=== PATIENT | female | born 1970 | race Caucasian/White ===

== ENCOUNTER → 2019-05-14 12:30 | Outpatient (CLI) | payer OTHER, SELFPAY ==
--- NOTE | ~2019-05-14 | MM_ITS ---
EXAMINATION: MM screening [facility] BI w loni HISTORY: Screening mammogram TECHNIQUE: Craniocaudal and mediolateral oblique 3-D tomosynthesis images were obtained and synthetic 2-D images were generated. CAD analysis was submitted and interpreted. COMPARISON: 04/10/2018, 03/23/2017, 03/16/2016 BREAST PARENCHYMAL COMPOSITION: There are scattered areas of fibroglandular density. FINDINGS: There is no evidence of suspicious mass, calcification, or architectural distortion to sugg est malignancy in either breast. There has been no suspicious interval change. IMPRESSION: 1. No mammographic evidence of malignancy. 2. Recommend routine screening mammography in one year. BI-RADS Category 1: Negative Reviewed, dictated and finalized at location A. 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
== END ==
PROVIDERS: PCP Family Medicine
DX: Z12.31 Encounter for screening mammogram for malignant neoplasm of breast (principal)
CPT/HCPCS: 77063; 77067

== ENCOUNTER 2019-12-03 10:59 | Outpatient (CLI) | payer OTHER, SELFPAY ==
--- NOTE | 2019-12-03 11:02 | ECG_ITS ---
Measurements Intervals [place] Rate: 68 P: 26 LA: 171 QRS: 13 QRSD: 109 T: 1 QT: 404 QTc: 432 Interpretive Statements SINUS RHYTHM DELAYED PRECORDIAL R/S TRANSITION BORDERLINE ST-T WAVE ABNORMALITY- INFERIOR LEADS BORDERLINE ECG Electronically Signed On 12-03-2019 11:20:36 CDT by Maurilio Church D.O.
[2019-12-03 11:29] LABS: Hematocrit 40.4 % (37.0-47.0); Hemoglobin 13.3 g/dL (12.0-15.0)
[2019-12-03 11:41] LABS: Anion Gap 7 mmol/L (8-16); Blood Urea Nitrogen 17 mg/dL (7-17); Carbon Dioxide 26 mmol/L (22-30); Chloride 104 mmol/L (98-107); Estimated Glomerular Filt Rate > 60; Glucose 113 mg/dL (65-105); Potassium 3.9 mmol/L (3.4-5.0); Sodium 137 mmol/L (137-145)
== END 2019-12-03 11:00 | disposition home or self-care (01) ==
PROVIDERS: Anesthesiology; PCP Family Medicine; Visit Provider Orthopaedic Surgery
DX: D64.9 Anemia, unspecified (principal); I10 Essential (primary) hypertension; Z01.812 Encounter for preprocedural laboratory examination; R94.31 Abnormal electrocardiogram [ECG] [EKG]
CPT/HCPCS: 36415; 80048; 85014; 85018; 93005

== ENCOUNTER 2019-12-06 01:40 | Outpatient (CLI) | payer OTHER, SELFPAY ==
[2019-12-06 19:30] LABS: SARS-CoV-2 RNA PCR Negative
== END 2019-12-06 01:41 | disposition home or self-care (01) ==
LOC: ANHCOVIDDT 01:40
PROVIDERS: PCP Family Medicine; Visit Provider Orthopaedic Surgery
DX: Z01.812 Encounter for preprocedural laboratory examination (principal); Z11.59 Encounter for screening for other viral diseases
CPT/HCPCS: 87635; C9803; U0003

== ENCOUNTER 2019-12-09 01:16 | Day surgery (SDC) | payer OTHER, SELFPAY ==
[2019-12-02 13:33] VITALS: BMI 39.4
[2019-12-09] VITALS (11 sets, daily range): BP systolic 103–124; BP diastolic 69–84; PULSE 52–71; RESP 15–18; TEMP 37–37.2; O2SAT 98–100
--- NOTE | 2019-12-09 08:57 | WPDHPUPDATE1 ---
History and Physical Update Update Date/Time: 12/09/19 08:57 History and Physical has been reviewed, including an updated exam of the patient. There are NO changes in the patient's condition. Risks, benefits, and alternatives have been discussed and questions answered. Patient agrees to proceed with procedure.
--- NOTE | 2019-12-09 11:23 | WPDANESEPPF ---
Anes - Initial Pre Proc Eval Procedure: Operation Date: 12/09/19 13:15 Proposed Procedures p Right Carpal Tunnel Release - Josemanuel Brush MD Date/Time: 12/09/19 11:23 Surgeon: Josemanuel Brush MD Pre Op Diagnosis: Right Carpal Tunnel Syndrome Patient Data Age: 49 Gender: F Height: 5 ft 4 in Weight: 104.33 kg Allergies Allergy/AdvReac Type Severity Reaction Status Date / Time adhesive Allergy Unknown RASH Verified 11/28/19 10:00 oxycodone Allergy Unknown Headache Verified 11/28/19 10:00 hydrocodone AdvReac Unknown Nausea Verified 11/28/19 10:00 Home Medications Medication Instructions Recorded Confirmed Type omeprazole 40 mg capsule,delayed 40 mg PO DAILY #90 cap 02/21/19 12/02/19 Rx release cetirizine 10 mg capsule 10 mg PO DAILY 03/13/19 12/02/19 History potassium chloride 10 mEq 10 meq PO DAILY #90 cap 04/24/19 12/02/19 Rx capsule,extended release losartan 50 mg-hydrochlorothiazide 0.5 tablet PO DAILY tablet 05/22/19 12/02/19 History 12.5 mg tablet diclofenac potassium 50 mg tablet 50 mg PO BID #60 tablet 10/06/19 12/02/19 Rx metoprolol succinate 50 mg 50 mg PO DAILY #90 tablet 10/06/19 12/02/19 Rx tablet,extended release 24 hr furosemide [Lasix] 40 mg PO DAILY 12/02/19 12/02/19 History methylphenidate HCl 27 mg 27 mg PO QAM #30 tablet 12/02/19 Rx tablet,extended release 24 hr Patient hx anesthesia problems: post op nausea/vomiting Family hx anesthesia problems: none PMFSH Past Medical History Medical History Anemia Arthritis Bilateral knee pain Carpal tunnel syndrome Chronic GERD Diastolic dysfunction Edema Essential hypertension Fibromyalgia GERD (gastroesophageal reflux disease) HTN (hypertension) Hyperlipidemia Kidney disease Lateral epicondylitis Lateral epicondylitis of both elbows Nausea Numbness and tingling in right hand Obesity AGUS on CPAP Palpitations Primary osteoarthritis of both knees Screen for colon cancer Screening, lipid Sinus tachycardia Sleep apnea Vision abnormalities Surgical History Surgical History H/O section Hx of cholecystectomy Family History Family History Father Family history of premature coronary heart disease Hypertension Diabetes mellitus Family history of elevated blood lipids Family history of congestive heart failure Family history of coronary artery disease Mother Family history of malignant neoplasm of brain Family history of elevated blood lipids Family history of arthritis Family history of dementia Sibling Colon polyp Other Cerebrovascular accident Family history of lung disease Family history of malignant neoplasm of uterus Social History Social History Smoking status: Never smoker Alcohol intake: current Substance use: never Living arrangements: with family Spiritual care concerns: No Anes - Eval Final PreProcedure Day of Procedure 12/09/19 11:23 Patient weight: obese Heart: regular rate and rhythm Lungs: clear to auscultation Airway: Mallampati scale class II Neurological: alert and oriented Last oral intake: >/= 8 hours ASA classification: III Emergent: no Anesthetic plan: proceed Anesthesia type and monitoring: general LMA and standard monitoring Informed Consent: The patient's anesthetic plan and its attendant risks and benefits were discussed with the patient/family/POA. Questions were solicited and answers provided to the satisfaction of the patient/family/POA.
[2019-12-09] MEDS: CELECOXIB 200 MG CAPSULE PO (11:43)
[2019-12-09] MEDS: ACETAMINOPHEN 500 MG TABLET 1000 MG PO (11:44)
[2019-12-09] MEDS: LACTATED RINGERS 1,000 ML 30 ML IV CONT ×2 (11:47→14:56)
[2019-12-09] MEDS: SCOPOLAMINE 1.5 MG PATCH TRANSDERM (12:08)
[2019-12-09] MEDS: ceFAZolin 2 GM/D5W 50 ML 2 GM/50 ML BAG IVPB (14:02)
[2019-12-09] MEDS: KETOROLAC 15 MG/ML VIAL (*BKC) IV PUSH (14:31)
--- NOTE | 2019-12-09 14:57 | PM.OP ---
Procedure Note - Brief Procedure Note - Brief Date of procedure: 12/09/19 Pre-op diagnosis: Right Carpal Tunnel Syndrome Post-op diagnosis: same Procedure performed: R CTR Anesthesia: GLMA Surgeon: Josemanuel Brush MD Estimated blood loss (mL): 5 Complications: No immediate complications Condition: stable Disposition: PACU
--- NOTE | 2019-12-09 14:58 | PM.PROC ---
Procedure Note - Detailed Date of procedure: 12/09/19 Pre-op diagnosis: Right Carpal Tunnel Syndrome Post-op diagnosis: same Procedure performed: R CTR Description of procedure: THE RIGHT UPPER EXTREMITY WAS PREPPED AND DRAPED IN THE STERILE FASHION. THE CARPAL TUNNEL WAS MARKED FROM THE FLEXED RING FINGER. THE TORNEQUET WAS INFLATED. THE INCISION WAS MADE AT THE MID PALM DOWN THROUGH THE SUBCUTANEOUS TISSUES. THE PALMAR FASCIA WAS IDENTIFIED. AN INCISION WAS MADE THROUGH THE PALMAR FASCIA UNTIL THE CARPAL TUNNEL WAS ENTERED. A MOSQUITO HEMOSTAT WAS USED TO PROTECT THE MEDIAN NERVE WHILE THE INCISION TO THE PALMAR FASCIA WAS COMPLETE PROXIMALLY AND DISTALLY TO THE CARDINAL LINE. NEXT, THE TRANSVERSE CARPAL LIGAMENT WAS IDENTIFIED. A FREIER ELEVATOR WAS USED TO SEPARATE THE NERVE FROM THE LIGAMENT. A METZENBAUM SCISSORS WAS THEN USED TO INCISE THE TRANSVERSE CARPAL LIGAMENT UNTIL THERE WAS A COMPLETE RELEASE OF THE CARPAL TUNNEL. THE MEDIAN NERVE WAS INTACT. THE TOURNEQUET WAS DEFLATED. THE BLEEDERS WERE CAUTERIZED. THE WOUND WAS WASHED. THE SKIN WAS APPROXIMATED WITH 4-0 NYLON SUTURE. STERILE DRESSING WAS APPLIED. PATIENT WAS EXTUBATED AND SENT TO THE RECOVERY ROOM. Anesthesia: GLMA Surgeon: Josemanuel Brush MD Estimated blood loss (mL): 5 Complications: No immediate complications Condition: stable Disposition: PACU
== END 2019-12-09 17:22 | disposition home or self-care (01) ==
PROVIDERS: PCP Family Medicine; Visit Provider Orthopaedic Surgery
PROC: (CPT 64721; principal; 2019-12-09 13:15)
DX: G56.01 Carpal tunnel syndrome, right upper limb (principal); I10 Essential (primary) hypertension; K21.9 Gastro-esophageal reflux disease without esophagitis; E78.5 Hyperlipidemia, unspecified; G47.33 Obstructive sleep apnea (adult) (pediatric); E66.9 Obesity, unspecified; Z68.39 Body mass index [BMI] 39.0-39.9, adult
CPT/HCPCS: 64721; 36415; 80048; 85014; 85018; 87635; 93005; A9270; C9803; J0690; J1100; J1885; J2250; J2405; J2704; J3010; J7120; U0003

== ENCOUNTER → 2019-12-29 15:51 | Outpatient (CLI) | payer OTHER, SELFPAY ==
--- NOTE | ~2019-12-29 | XR_ITS ---
EXAMINATION:XR cervical spine min 6V DATE: 12/29/2019 16:43 INDICATION: Unspecified injury of the neck, initial encounter TECHNIQUE: AP, lateral, bilateral oblique, lateral swimmers and odontoid views of the cervical spine are provided. COMPARISON: None FINDINGS: Alignment is normal. The odontoid is intact. No fracture is identified. There is mild loss of intervertebral disc space height at C4-5 and C5-6. The vertebral body heights are normal. Small de generative osteophytes project from the anterior endplates of multiple vertebral bodies. There is mil d uncovertebral joint osteoarthritis at C3-4 and C4-5. Prevertebral soft tissues are normal. IMPRESSION: 1. Mild cervical spondylosis without acute findings. Reviewed, dictated and finalized at location A.
== END ==
PROVIDERS: PCP Family Medicine; Visit Provider Nurse Practitioner Family
DX: M47.812 Spondylosis without myelopathy or radiculopathy, cervical region (principal)
CPT/HCPCS: 72052

== ENCOUNTER → 2020-01-10 08:54 | Outpatient (CLI) | payer OTHER, SELFPAY ==
--- NOTE | ~2020-01-10 | MR_ITS ---
EXAMINATION: MR cervical spine wo con EXAM DATE: 01/10/2020 09:55 INDICATION: Left-sided neck, upper back pain. Left shoulder pain. TECHNIQUE: Multi-sequential, multiplanar MR images of the cervical spine were obtained without contra st. Axial T2, axial T2 MERGE sequence. Sagittal T1, T2, T2 fat saturation images also obtained. Th ere is no prior study for comparison. FINDINGS: The vertebral bodies are aligned in the AP dimension. There is mild disc disease from C4-7 . The spinal cord signal intensity and intrinsic morphology is normal. Cervicomedullary junction is n ormal in appearance. There are no suspicious marrow signal abnormalities. Paraspinal soft tissue is u nremarkable. Level by level evaluation: C2-C3: Disc does not extend beyond the endplate margin. Uncovertebral joint arthropathy: None. Facet joint arthropathy: Mild bilateral. Neural foraminal stenosis: Mild to moderate left. Central canal stenosis: No stenosis. C3-C4: There is a mild diffuse disc bulge asymmetric to the right Uncovertebral joint arthropathy: None. Facet joint arthropathy: Mild bilateral. Neural foraminal stenosis: No stenosis. Central canal stenosis: Mild. C4-C5: There is a mild diffuse disc bulge. Asymmetric to the right Uncovertebral joint arthropathy: Moderate right, mild left. Facet joint arthropathy: Mild bilateral. Neural foraminal stenosis: Mild to moderate right, no left. Central canal stenosis: Mild. C5-C6: Disc does not extend beyond the endplate margin. Uncovertebral joint arthropathy: None. Facet joint arthropathy: Mild bilateral. Neural foraminal stenosis: No stenosis. Central canal stenosis: No stenosis. C6-C7: There is a mild diffuse disc bulge asymmetric to the left Uncovertebral joint arthropathy: Moderate left, mild right. Facet joint arthropathy: Minimal bilateral. Neural foraminal stenosis: Moderate left. Central canal stenosis: Mild. C7-T1: Disc does not extend beyond the endplate margin. Uncovertebral joint arthropathy: Mild bilateral. Facet joint arthropathy: Mild bilateral. Neural foraminal stenosis: No stenosis. Central canal stenosis: No stenosis. IMPRESSION: 1. Left C6-7 neural foramina most narrowed on exam. 2. Overall mild to moderate cervical spondylosis. Reviewed, dictated and finalized at location B.
== END ==
PROVIDERS: PCP Family Medicine; Visit Provider Nurse Practitioner Family
DX: M54.2 Cervicalgia (principal); M47.812 Spondylosis without myelopathy or radiculopathy, cervical region
CPT/HCPCS: 72141

== ENCOUNTER 2020-08-23 20:59 | Emergency (ER) | payer OTHER, SELFPAY ==
[2020-08-23 21:01] VITALS: BP 137/81; PULSE 78; RESP 16; TEMP 37; O2SAT 100
[2020-08-23] MEDS: TETANUS,DIPHTHERIA,AC PERTUSSIS ADULT (0.5 ML) BOOSTRIX IM (22:47)
--- NOTE | 2020-08-23 22:53 | ED.WOUNDLAC ---
HPI - Wound/Laceration General Chief Complaint: Wound/Laceration Stated Complaint: finger lac Time Seen by Provider: 08/23/20 22:14 Source: patient Mode of arrival: ambulatory Limitations: no limitations History of Present Illness HPI narrative: This is a 50 year old female who presents for evaluation of left thumb laceration. She states she accidentally cut her left thumb on window scraper. She states at the time the laceration was bleeding and appeared deep. She has no difficulty moving finger. Denies numbness or tingling. She states she will need tetanus. Related Data Home Medications Medication Instructions Recorded Confirmed cetirizine 10 mg capsule 10 mg PO DAILY 03/13/19 08/20/20 Allergies Allergy/AdvReac Type Severity Reaction Status Date / Time adhesive Allergy Unknown RASH Verified 08/20/20 08:02 oxycodone Allergy Unknown Headache Verified 08/20/20 08:02 hydrocodone AdvReac Unknown Nausea Verified 08/20/20 08:02 Review of Systems Review of Systems: All systems reviewed & are unremarkable except as noted in HPI and below PMFSH Past Medical History Medical History ADD (attention deficit disorder) Anemia Arthritis Bilateral knee pain BMI 37.0-37.9, adult Carpal tunnel syndrome Chronic GERD Diastolic dysfunction Edema Essential hypertension Fibromyalgia GERD (gastroesophageal reflux disease) HTN (hypertension) Hyperlipidemia Kidney disease Lateral epicondylitis Lateral epicondylitis of both elbows Lateral epicondylitis, left elbow Nausea Numbness and tingling in right hand Obesity AGUS on CPAP Palpitations Primary osteoarthritis of both knees Screen for colon cancer Screening, lipid Sinus tachycardia Sleep apnea Vision abnormalities Surgical History Surgical History H/O section Hx of cholecystectomy Family History Family History Father Family history of premature coronary heart disease Hypertension Diabetes mellitus Family history of elevated blood lipids Family history of congestive heart failure Family history of coronary artery disease Mother Family history of elevated blood lipids Family history of arthritis Family history of dementia Sibling Colon polyp Hypertension Other Cerebrovascular accident Family history of lung disease Family history of malignant neoplasm of uterus Social History Social History (Reviewed 08/20/20 @ 08:53 by JACK Ogden Second hand tobacco smoke exposure: Yes Alcohol intake: current Substance use: never Substance use type: does not use Gender identity (if verbalized by the patient): Female Spiritual care concerns: No Exam Const: General: no acute distress and alert Orientation/consciousness: patient oriented x3 Eyes: EOM: EOMs intact bilaterally Resp: Effort & Inspection: normal respiratory effort Neuro: General: patient oriented x3, moves all extremities and CN's II-XI intact bilaterally Extrem: Other: left thumb with subcentimeter flap laceration that is well approximated, no bleeding. Psych: Mental Status: mental status grossly normal Affect: normal affect Course Vital Signs Vital signs: Vital Signs Temperature 98.6 F 08/23/20 21:01 Pulse Rate 78 08/23/20 21:01 Respiratory Rate 16 08/23/20 21:01 Blood Pressure 137/81 08/23/20 21:01 Pulse Oximetry 100 08/23/20 21:01 Temperature 98.6 F 08/23/20 21:01 Pulse Rate 78 08/23/20 21:01 Respiratory Rate 16 08/23/20 21:01 Blood Pressure 137/81 08/23/20 21:01 Pulse Oximetry 100 08/23/20 21:01 Procedures Laceration Laceration 1: Date: 08/23/20 Time: 23:01 Site: hand (left thumb) Side (If applicable): left Size (cm): 0.5 Description: flap ====== Skin Level =====
== END 2020-08-23 23:17 | disposition home or self-care (01) ==
PROVIDERS: Emergency Provider General Practice; PCP Family Medicine
DX: S61.012A Laceration without foreign body of left thumb without damage to nail, initial encounter (principal); Z23 Encounter for immunization; K21.9 Gastro-esophageal reflux disease without esophagitis; I10 Essential (primary) hypertension; M79.7 Fibromyalgia; E78.5 Hyperlipidemia, unspecified; N28.9 Disorder of kidney and ureter, unspecified; G47.33 Obstructive sleep apnea (adult) (pediatric); F98.8 Other specified behavioral and emotional disorders with onset usually occurring in childhood and adolescence; M17.0 Bilateral primary osteoarthritis of knee; E66.9 Obesity, unspecified; Z68.38 Body mass index [BMI] 38.0-38.9, adult; Z77.22 Contact with and (suspected) exposure to environmental tobacco smoke (acute) (chronic); W27.8XXA Contact with other nonpowered hand tool, initial encounter
CPT/HCPCS: 12001; 90471; 90715; 99282

== ENCOUNTER 2020-12-14 21:48 | Emergency (ER) | payer OTHER, SELFPAY ==
--- NOTE | ~2020-12-14 | XR_ITS ---
XR chest 1V portable 12/14/2020 22:59 Indication: Cough and fever Procedure: AP portable chest Comparison: 07/04/2016 Findings: Heart size normal. Patchy bilateral infiltrates of the mid and lower lung zones. No signifi cant effusion or pneumothorax. No acute osseous abnormality. Impression: 1: Patchy bilateral infiltrates, compatible with pneumonia. Reviewed, dictated and finalized at location A. Impression: 1: Patchy bilateral infiltrates, compatible with pneumonia.
[2020-12-14 22:38] VITALS: BP 111/71; PULSE 102; RESP 19; TEMP 37.6; O2SAT 99
[2020-12-14 22:59] LABS: Basophils Absolute Auto 0.1 K/mm3 (0.0-0.1); Basophils Percent Auto 0.4 % (0.2-1.2); Eosinophils Percent Auto 0.1 % (0-4.4); Hematocrit 37.3 % (37.0-47.0); Immature Granulocyte Absolute 0.15 K/mm3 (0.00-0.031); Immature Granulocyte Percent A 0.9 % (0-0.5); Lymphocytes Absolute Auto 0.83 K/mm3 (0.9-3.2); Lymphocytes Percent Auto 4.9 % (18.3-44.2); Mean Corpuscular HGB Conc 32.2 g/dl (32-36); Mean Platelet Volume 9.5 fl (7.4-10.4); Monocytes Absolute Auto 1.8 K/mm3 (0.1-0.6); Monocytes Percent Auto 10.8 % (2.6-8.5); Neutrophils Absolute Auto 14.1 K/mm3 (1.3-6.7); Neutrophils Percent Auto 82.9 % (45.5-73.1); Platelet Count Result 226 k/mm3 (150-375); Red Blood Count 4.44 M/mm3 (4.2-5.4); Red Cell Distribution Width 13.7 % (11.5-14.5)
[2020-12-14 23:08] LABS: Alanine Aminotransferase 23 U/L (4-35); Albumin Level 3.6 g/dL (3.5-5.1); Alkaline Phosphatase 116 U/L (38-126); Anion Gap 8 mmol/L (8-16); Aspartate Amino Transferase 24 U/L (14-36); Bilirubin,Total 0.6 mg/dL (0.2-1.3); Blood Urea Nitrogen 10 mg/dL (7-17); Calcium 9.3 mg/dL (8.4-10.2); Carbon Dioxide 25 mmol/L (22-30); Chloride 101 mmol/L (98-107); Estimated CRCL calculation 78 ml/min; Estimated Glomerular Filt Rate > 60; Glucose 140 mg/dL (65-110); Potassium 3.6 mmol/L (3.4-5.0); Sodium 134 mmol/L (137-145)
[2020-12-14 23:31] LABS: EDCOVIDSCREEN Negative (Negative)
--- NOTE | 2020-12-15 01:45 | ED.FEVER ---
HPI - Fever General Chief Complaint: Fever Stated Complaint: fever Time Seen by Provider: 12/15/20 01:30 Source: patient History of Present Illness HPI Narrative: Patient presents with fever shortness of breath. Patient ports she had symptoms for the past few days and is getting progressively worse so she came to the ER for evaluation. Reports headache and diffuse body aches. She reports she is attempted Tylenol at home with intermittent relief of her symptoms. Since her symptoms are not improving she came to the ER for evaluation she has no known sick contacts denies any recent antibiotics hospitalization or association with healthcare system. Related Data Home Medications Medication Instructions Recorded Confirmed cetirizine 10 mg capsule 10 mg PO DAILY 03/13/19 11/29/20 losartan 50 mg-hydrochlorothiazide 0.5 tablet PO DAILY tablet 09/02/20 11/29/20 12.5 mg tablet Allergies Allergy/AdvReac Type Severity Reaction Status Date / Time adhesive Allergy Unknown RASH Verified 12/15/20 02:00 oxycodone Allergy Unknown Headache Verified 12/15/20 02:00 hydrocodone AdvReac Unknown Nausea Verified 12/15/20 02:00 Review of Systems Review of Systems: CONSTITUTIONAL: Reports fevers chills and sweats EYES: Denies visual changes, redness, or discharge. ENT: Denies rhinorrhea, congestion, sore throat, or otalgia. CARDIOVASCULAR: Denies chest pain, palpitations, or edema. RESPIRATORY: Reports cough and shortness of breath GASTROINTESTINAL: Denies abdominal pain, nausea, vomiting, or diarrhea. GENITOURINARY: Denies dysuria or hematuria. SKIN: Denies rash or itching. MUSCULOSKELETAL: Denies back pain, joint pain, or myalgia. NEUROLOGIC: Denies headache, numbness, dizziness, or weakness. PSYCHIATRIC: Denies anxiety or depression. All systems reviewed & are unremarkable except as noted in HPI and below PMFSH Past Medical History Medical History ADD (attention deficit disorder) Anemia Arthritis Bilateral knee pain BMI 37.0-37.9, adult BMI 39.0-39.9,adult Carpal tunnel syndrome Chronic GERD Diastolic dysfunction Edema Essential hypertension Fibromyalgia GERD (gastroesophageal reflux disease) HTN (hypertension) Hyperlipidemia Kidney disease Lateral epicondylitis Lateral epicondylitis of both elbows Lateral epicondylitis, left elbow Nausea Numbness and tingling in right hand Obesity AGUS on CPAP Palpitations Primary osteoarthritis of both knees Screen for colon cancer Screening, lipid Sinus tachycardia Sleep apnea Vision abnormalities Surgical History Surgical History H/O section Hx of cholecystectomy Family History Family History Father Family history of premature coronary heart disease Hypertension Diabetes mellitus Family history of elevated blood lipids Family history of congestive heart failure Family history of coronary artery disease Mother Family history of elevated blood lipids Family history of arthritis Family history of dementia Sibling Colon polyp Hypertension Other Cerebrovascular accident Family history of lung disease Family history of malignant neoplasm of uterus Social History Social History Second hand tobacco smoke exposure: Yes Alcohol intake: current Substance use: never Substance use type: does not use Gender identity (if verbalized by the patient): Female Spiritual care concerns: No Exam Narrative: GENERAL: Well-appearing, well-nourished, and in no acute distress. HEAD: Normocephalic, atraumatic. EYES: PERRLA and EOMI. ENT: Nares clear, no rhinorrhea or epistaxis. Mucous membranes moist. NECK: Supple. No masses. No JVD CHEST: Clear to auscultation. No respiratory distress. No wheezes rales or rhonchi HEART: Re
[2020-12-15 01:58] VITALS: BP 146/73; PULSE 103; RESP 18; O2SAT 100
[2020-12-15 02:02] LABS: Lactic Acid Reflex 0.9 mmol/L (0.7-2.1)
[2020-12-15] MEDS: ACETAMINOPHEN 500 MG TABLET 1000 MG PO (02:22)
[2020-12-15] MEDS: SODIUM CHLORIDE 0.9% IV 1,000 ML 999 ML IV CONT (02:23)
[2020-12-15 03:39] VITALS: BP 103/80; PULSE 95; RESP 16; O2SAT 98
[2020-12-15 04:19] VITALS: BP 99/58; PULSE 87; RESP 18; TEMP 36.8; O2SAT 99
== END 2020-12-15 04:20 | disposition home or self-care (01) ==
PROVIDERS: Emergency Provider Emergency Medicine; PCP Family Medicine
DX: Z20.822 Contact with and (suspected) exposure to COVID-19 (principal); J18.9 Pneumonia, unspecified organism; M19.90 Unspecified osteoarthritis, unspecified site; I10 Essential (primary) hypertension; K21.9 Gastro-esophageal reflux disease without esophagitis; G47.30 Sleep apnea, unspecified
CPT/HCPCS: 36415; 71045; 80053; 83605; 85025; 87426; 96361; 96365; 99284; A9270; C9803; J0456; J7030

== ENCOUNTER 2020-12-27 09:23 | Emergency (ER) | payer OTHER, SELFPAY ==
--- NOTE | ~2020-12-27 | XR_ITS ---
EXAMINATION: XR chest 2V EXAM DATE: 12/27/2020 09:53 INDICATION: Cough, fever, chills; recent dx of pneumonia. TECHNIQUE: Frontal and lateral projections of the chest obtained and reviewed. Comparison is made to prior examination from 12/14/2020. FINDINGS: There are cholecystectomy clips. The lungs are clear. There are no pleural effusions. Th e cardiomediastinal silhouette is within normal limits. There is no pneumothorax suspected. The bon es and soft tissues are unremarkable. IMPRESSION: No acute cardiopulmonary findings. Reviewed, dictated and finalized at location B.
[2020-12-27 09:33] VITALS: BP 139/77; PULSE 84; RESP 14; TEMP 37.7; O2SAT 100
[2020-12-27 10:12] VITALS: RESP 14; O2SAT 100
[2020-12-27] MEDS: KETOROLAC 30 MG/ML VIAL (*BKC) IV PUSH (11:08)
[2020-12-27] MEDS: SODIUM CHLORIDE 0.9% IV 500 ML 999 ML IV CONT (11:08)
[2020-12-27 11:09] VITALS: TEMP 39.2
[2020-12-27 11:18] LABS: Basophils Percent Auto 0.3 % (0.2-1.2); Eosinophils Percent Auto 0.3 % (0-4.4); Hematocrit 40.1 % (37.0-47.0); Hemoglobin 12.8 g/dL (12.0-15.0); Immature Granulocyte Absolute 0.04 K/mm3 (0.00-0.031); Immature Granulocyte Percent A 0.3 % (0-0.5); Lymphocytes Percent Auto 8.4 % (18.3-44.2); Mean Corpuscular HGB Conc 31.9 g/dl (32-36); Mean Corpuscular Hemoglobin 27.5 pg (26-34); Mean Corpuscular Volume 86.1 fl (80-100); Mean Platelet Volume 9.4 fl (7.4-10.4); Monocytes Absolute Auto 0.9 K/mm3 (0.1-0.6); Monocytes Percent Auto 7.2 % (2.6-8.5); Neutrophils Absolute Auto 9.9 K/mm3 (1.3-6.7); Neutrophils Percent Auto 83.5 % (45.5-73.1); Platelet Count Result 346 k/mm3 (150-375); Red Blood Count 4.66 M/mm3 (4.2-5.4); Red Cell Distribution Width 14.3 % (11.5-14.5); White Blood Count 11.9 K/mm3 (4.5-10.0)
[2020-12-27] MEDS: ACETAMINOPHEN 500 MG TABLET 1000 MG PO (11:27)
[2020-12-27 11:46] LABS: Anion Gap 10 mmol/L (8-16); Blood Urea Nitrogen 12 mg/dL (7-17); Calcium 9.6 mg/dL (8.4-10.2); Carbon Dioxide 27 mmol/L (22-30); Chloride 99 mmol/L (98-107); Estimated CRCL calculation 97 ml/min; Estimated Glomerular Filt Rate > 60; Glucose 108 mg/dL (65-110); Potassium 4.3 mmol/L (3.4-5.0); Sodium 136 mmol/L (137-145)
[2020-12-27 13:07] VITALS: BP 111/57; PULSE 87; RESP 14; TEMP 37.3; O2SAT 99
--- NOTE | 2020-12-27 13:22 | ED.GENADULT ---
HPI - General Adult General Chief complaint: Unspecified Stated complaint: Cough/Fever/ Bodyaches Time Seen by Provider: 12/27/20 10:03 History of Present Illness HPI narrative: Patient is a 50-year-old female who presents with concerns for infection. Recently diagnosed with pneumonia. Dysuria took a Z-Fernando and then Augmentin. Last dose was 1 week ago. Reports over last 24 hours patient has developed fevers and chills and body aches. Has a dry nonproductive cough. No loss of taste or smell. She is fully vaccinated against Covid. No known sick contacts. Patient is without urinary/dental/abdominal symptoms. Related Data Home Medications Medication Instructions Recorded Confirmed cetirizine 10 mg capsule 10 mg PO DAILY 03/13/19 11/29/20 losartan 50 mg-hydrochlorothiazide 0.5 tablet PO DAILY tablet 09/02/20 11/29/20 12.5 mg tablet Allergies Allergy/AdvReac Type Severity Reaction Status Date / Time adhesive Allergy Unknown RASH Verified 12/15/20 02:00 oxycodone Allergy Unknown Headache Verified 12/15/20 02:00 hydrocodone AdvReac Unknown Nausea Verified 12/15/20 02:00 Review of Systems Review of Systems: All systems reviewed & are unremarkable except as noted in HPI and below Constitutional: Constitutional: Reports body ache(s), Reports chills and Reports fever(s) ENT: Denies nasal congestion and Denies sore throat Respiratory: Respiratory: Reports cough, Denies dyspnea and Denies wheezing Gastrointestinal: Gastrointestinal: Denies abdominal pain, Denies diarrhea, Denies nausea and Denies vomiting Genitourinary: Genitourinary: Denies nocturia, Denies dysuria, Denies flank pain and Denies urinary urgency Musculoskeletal: Musculoskeletal: Denies back pain and Denies muscle cramps PMF Past Medical History Medical History ADD (attention deficit disorder) Anemia Arthritis Bilateral knee pain BMI 37.0-37.9, adult BMI 39.0-39.9,adult Carpal tunnel syndrome Chronic GERD Diastolic dysfunction Edema Essential hypertension Fibromyalgia GERD (gastroesophageal reflux disease) HTN (hypertension) Hyperlipidemia Kidney disease Lateral epicondylitis Lateral epicondylitis of both elbows Lateral epicondylitis, left elbow Nausea Numbness and tingling in right hand Obesity AGUS on CPAP Palpitations Primary osteoarthritis of both knees Screen for colon cancer Screening, lipid Sinus tachycardia Sleep apnea Vision abnormalities Surgical History Surgical History H/O section Hx of cholecystectomy Family History Family History Father Family history of premature coronary heart disease Hypertension Diabetes mellitus Family history of elevated blood lipids Family history of congestive heart failure Family history of coronary artery disease Mother Family history of elevated blood lipids Family history of arthritis Family history of dementia Sibling Colon polyp Hypertension Other Cerebrovascular accident Family history of lung disease Family history of malignant neoplasm of uterus Social History Social History Second hand tobacco smoke exposure: Yes Alcohol intake: current Substance use: never Substance use type: does not use Gender identity (if verbalized by the patient): Female Spiritual care concerns: No Exam Narrative: GENERAL: Well-appearing, well-nourished, and in no acute distress. HEAD: Normocephalic, atraumatic. EYES: PERRL and EOMI. CHEST: Clear to auscultation. No respiratory distress. HEART: Regular rate and rhythm. Normal peripheral pulses. ABDOMEN: Soft, nontender, nondistended. EXTREMITIES: Normal range of motion. No edema. SKIN: Warm, dry, no rash. NEURO: Alert and oriented x3. PSYCH: Normal mood and affect. Course Cou
[2020-12-27 13:45] VITALS: BP 107/78; PULSE 88; RESP 16; TEMP 37.2; O2SAT 100
[2020-12-27 19:00] LABS: SARS-CoV-2 RNA PCR Negative
== END 2020-12-27 13:46 | disposition home or self-care (01) ==
PROVIDERS: Emergency Provider Emergency Medicine; PCP Family Medicine
DX: B34.9 Viral infection, unspecified (principal); Z20.822 Contact with and (suspected) exposure to COVID-19; Z86.2 Personal history of diseases of the blood and blood-forming organs and certain disorders involving the immune mechanism; K21.9 Gastro-esophageal reflux disease without esophagitis; I10 Essential (primary) hypertension; E78.5 Hyperlipidemia, unspecified; N28.9 Disorder of kidney and ureter, unspecified; E66.9 Obesity, unspecified; Z68.37 Body mass index [BMI] 37.0-37.9, adult; G47.33 Obstructive sleep apnea (adult) (pediatric); M17.0 Bilateral primary osteoarthritis of knee
CPT/HCPCS: 36415; 71046; 80048; 85025; 87804; 96361; 96374; 99284; A9270; C9803; J1885; J7040; U0003; U0005

== ENCOUNTER → 2021-12-27 11:43 | Outpatient (CLI) | payer OTHER, SELFPAY ==
--- NOTE | ~2021-12-27 | MM_ITS ---
EXAMINATION: MM screening [facility] BI w loni HISTORY: Screening mammogram TECHNIQUE: Craniocaudal and mediolateral oblique 3-D tomosynthesis images were obtained and synthetic 2-D images were generated. CAD analysis was submitted and interpreted. COMPARISON: 05/14/2019, 04/10/2018, 03/23/2017 BREAST PARENCHYMAL COMPOSITION: There are scattered areas of fibroglandular density. FINDINGS: There is no suspicious mass, calcification, or architectural distortion to suggest malignan cy in either breast. There has been no suspicious interval change. IMPRESSION: 1. No mammographic evidence of malignancy. 2. Recommend routine screening mammography in one year. BI-RADS Category 1: Negative Reviewed, dictated and finalized at location A.
== END ==
PROVIDERS: PCP Family Medicine
DX: Z12.31 Encounter for screening mammogram for malignant neoplasm of breast (principal)
CPT/HCPCS: 77063; 77067

== ENCOUNTER 2022-03-18 00:10 | Emergency (ER) | payer OTHER, SELFPAY ==
[2022-03-18 00:23] VITALS: BP 136/86; PULSE 73; RESP 18; TEMP 36.4; O2SAT 99
--- NOTE | 2022-03-18 01:27 | PC.NURSE ---
pt to desk reporting to renee brumfield rn that she felt as if the bleeding is lighting up and will come back tomorrow if she needs to . pt amb out of ed with steady gait and in no obvious distress.
== END 2022-03-18 01:27 | disposition left against medical advice (07) ==
PROVIDERS: PCP Family Medicine
DX: N93.9 Abnormal uterine and vaginal bleeding, unspecified (principal); Z79.01 Long term (current) use of anticoagulants
CPT/HCPCS: 99199

== ENCOUNTER 2022-07-05 08:25 | Outpatient (CLI) | payer OTHER, SELFPAY ==
--- NOTE | ~2022-07-05 | MR_ITS ---
MRI of the left shoulder Technique: Axial proton-density fat-sat images, coronal proton density fat-sat and T2 fat-sat images, and sagittal T1-weighted and T2 fat-sat images were acquired. Clinical History: Subacromial bursitis Findings: There is mild AC joint degenerative change. No subacromial spur. Coracoclavicular, coracoac romial, and coracohumeral ligaments are intact. There is moderate to severe supraspinatus and infraspinatus tendinosis, without partial or full-thick ness tear of the tendons. Subscapularis tendon is intact. Tendon of long head of the biceps is intact . No labral tear identified. No degenerative change or effusion of the glenohumeral joint. Inferior glenohumeral ligament is intac t. No fluid distention of the subacromial/subdeltoid bursa. There is somewhat extensive edematous gen nge of the infraspinatus muscle belly. Impression: Fairly extensive edematous change of the infraspinatus muscle belly. Findings suggest posttraumatic c hange/low-grade muscle strain. Correlate for other infectious or inflammatory myositis. Moderate to severe supraspinatus and infraspinatus tendinosis. No partial or full-thickness tear. No evidence of subacromial bursitis. Reviewed, dictated and finalized at location . Impression: Fairly extensive edematous change of the infraspinatus muscle belly. Findings s uggest posttraumatic change/low-grade muscle strain. Correlate for other infect ious or inflammatory myositis. Moderate to severe supraspinatus and infraspinatus tendinosis. No partial or fu ll-thickness tear. No evidence of subacromial bursitis.
== END 2022-07-05 08:26 | disposition home or self-care (01) ==
LOC: ANHIMG 08:28
PROVIDERS: PCP Family Medicine; Visit Provider Nurse Practitioner Family
DX: M25.512 Pain in left shoulder (principal)
CPT/HCPCS: 73221

== ENCOUNTER 2023-03-08 12:41 | Outpatient (CLI) | payer OTHER, SELFPAY ==
--- NOTE | ~2023-03-08 | MM_ITS ---
EXAMINATION: MM screening janette BI w loni HISTORY: Screening mammogram TECHNIQUE: Craniocaudal and mediolateral oblique 3-D tomosynthesis images were obtained and synthetic 2-D images were generated. CAD analysis was submitted and interpreted. COMPARISON: 12/27/2021, , 04/10/2018 BREAST PARENCHYMAL COMPOSITION: FINDINGS: There is no evidence of suspicious mass, calcification, or architectural distortion to sugg est malignancy in either breast. There has been no suspicious interval change. IMPRESSION: 1. No mammographic evidence of malignancy. 2. Recommend routine screening mammography in one year. BI-RADS Category 1: Negative Reviewed, dictated and finalized at location A. NDER DYER
== END 2023-03-08 12:42 | disposition home or self-care (01) ==
LOC: CHSIMG 12:42
PROVIDERS: PCP Family Medicine
DX: Z12.31 Encounter for screening mammogram for malignant neoplasm of breast (principal)
CPT/HCPCS: 77063; 77067

== ENCOUNTER 2024-07-23 14:19 | Outpatient (CLI) | payer OTHER, SELFPAY ==
--- NOTE | ~2024-07-23 | XR_ITS ---
Left Hand Technique: PA, oblique, and lateral views were obtained. Clinical History: Pain Findings: No acute fracture or dislocation is seen. Osseous alignment is anatomic. Joint spaces are p reserved. Soft tissues are unremarkable. Impression: Unremarkable left hand. Reviewed, dictated and finalized at location M. Impression: Unremarkable left hand.
--- NOTE | ~2024-07-23 | XR_ITS ---
Right Hand Technique: PA, oblique, and lateral views were obtained. Clinical History: Pain Findings: No acute fracture or dislocation is seen. Osseous alignment is anatomic. Joint spaces are p reserved. Soft tissues are unremarkable. Impression: Unremarkable right hand. Reviewed, dictated and finalized at location M. Impression: Unremarkable right hand.
--- OUTSIDE RECORDS SUMMARY | 2024-07-23 15:41 | XMS_ITS | Clinical Summary ---
Author Organization [facility] Address [address] [place] [address] Care Team Providers Care Bleaching Supervisor Name Role Phone Jani Shah MD Primary Care Provider [phone] Grey Le MD Unavailable [phone] Allergies Active Allergy Reactions Criticality Noted Date Comments Adhesive Rash Medium 01/27/2022 Reaction: RASH Hydrocodone Nausea And Vomiting 04/28/2020 Oxycodone-Acetaminophen Headache Low 04/28/2020 Medications omeprazole (PriLOSEC) 40 mg capsule Take 40 mg by mouth daily Active methylphenidate ER (CONCERTA) 36 mg CR tabletIndications: Attention-Deficit Hyperactivity Disorder Take 36 mg by mouth every morning Active meloxicam (MOBIC) 15 mg tablet Take 15 mg by mouth daily Active furosemide (LASIX) 40 mg tablet Take 40 mg by mouth daily Active vitamin B complex capsule Take 1 capsule by mouth daily Active cholecalciferol (VITAMIN D-3) 25 mcg (1,000 unit) tablet Take 5,000 Units by mouth daily Active potassium chloride ER 10 mEq CR tablet Take 10 mEq by mouth daily Active multivitamin capsule Take 1 capsule by mouth daily Active liraglutide, weight loss, 3 mg/0.5 mL (18 mg/3 mL) pen injector Inject 3 mg under the skin daily Active apixaban (ELIQUIS) 5 mg tabletIndications: atrial fibrillation Take 1 tablet (5 mg total) by mouth every 12 (twelve) hours 60 tablet 11 2 Active dilTIAZem (CARDIZEM) 30 mg tablet Take 1 tablet (30 mg total) by mouth 3 (three) times a day 90 tablet 11 2 Active metoprolol tartrate (LOPRESSOR) 25 mg immediate release tablet Take 1 tablet (25 mg total) by mouth 4 (four) times a day 120 tablet 11 2 Active Active Problems Problem Noted Date Diagnosed Date Atrial fibrillation with RVR 01/27/2022 Pulmonary hypertension 01/27/2022 Acute on chronic right-sided congestive heart fa ilure 01/27/2022 Hypertension Vitamin D deficiency GERD (gastroesophageal reflux disease) Medical History Medical History Date Comments A-fib (HCC) Hypertension Social History Tobacco Use Types Packs/Day Years Used Date Smoking Tobacco: Never Tobacco Cessation:Counseling Given: Not Answered Alcohol Use Standard Drinks/Week Comments Yes 0 (1 standard drink = 0.6 oz pur e alcohol) Personal Safety Answer Date Recorded Getting School Help Needed Not on file 06/06 Comments No Sex and Gender Information Value Date Recorded Sex Assigned at Not on file Legal Sex Female 12:36 PM ALLEY WORKER Gender Identity Not on file Sexual Orientation Not on file Obstetrics History Last Filed Vital Signs Vital Sign Reading Time Taken Comments Blood Pressure 124/64 01/28/2022 11:00 AM CDT Pulse 65 01/28/2022 11:00 AM CDT Temperature 36.7 C (98 F) 01/28/2022 8:10 AM CDT Respiratory Rate 18 01/28/2022 8:10 AM CDT Oxygen Saturation 97% 01/28/2022 8:10 AM CDT Inhaled Oxygen Concentration - - Weight 94.8 kg (209 lb) 01/27/2022 3:46 AM CDT Height 162.6 cm (5' 4 ) 01/27/2022 3:46 AM CDT Body Mass Index 35.87 01/27/2022 3:46 AM CDT Plan of Treatment Health Maintenance Due Date Last Done Comments Cervical Cancer Screening 1972 Colon Cancer Screening-Colonoscopy 1972 Depression Screening 1972 Hepatitis C Screening 1972 Hepatitis B Screening 1990 Regular Well Visit/Exam 18-64 1990 Pneumococcal vaccine <65 (1 of 2 - PCV) 1991 Breast Cancer Screening-Mammogram 05/12/2014 014 Zoster Vaccine (1 of 2) 2022 Covid-19 Vaccine (2023-2 5 season) 2023 03/20/2021, 08/19/2020, 07/20/2020 Influenza Vaccine (Season Ended) 2024 03/04/2021, 01/19/2020, 01/17/2019, Additional history exists DTaP/Tdap/Td Vaccine (3 - Td or Tdap) 08/23/2030 08/23/2020, 06/01/2018 Procedures Procedure Name Priority Date/Time Associated Diagnosis Comments SCREENING MAMMOGRAM Routine 05/12/2013 1 :32 PM ALLEY WORKER from Last 3 Months or Most Recently Relevant to Health Maintenance Results * Screening Mammogram (05/12/2013 1:32 PM ALLEY WORKER) Anatomical Region Laterality Modality Breast N/A Mammography 05/12/2013 1:32 PM ALLEY WORKER Narrative 05/15/2013 3:23 PM ALLEY WORKER LOIDA CLEARY M.D. FINAL REPORT ACC# Date Time Exam [id number] May 12, 2013 13:32:00 [id number] Melchor Screening Mamm Technologist(s): Mercedez Ha; ; EXAMINATION: Mammogram Technique: Bilateral Full-Field Digital Screening Mammogram was performed. Views obtained: bilateral craniocaudal and bilateral mediolateral oblique. Computer Aided Detection was performed with Encapson.3 version 9.3. Mammogram Findings: This is a baseline study. There are scattered fibroglandular densities. There is no suspicious abnormality in either breast. IMPRESSION: Annual screening mammography is recommended. OVERALL FINAL ASSESSMENT: BI-RADS CATEGORY 1: Negative. Requested By: LISET CALL M.D. Dictated By: LOIDA CLEARY M.D. on May 15 2013 3:23P This document has been electronically signed by: LOIDA CLEARY M.D. on May 15 2013 3:23P Procedure Note Provider, MD Adi - 08/06/2016 LOIDA CLEARY M.D. FINAL REPORT ACC# Date Time Exam [id number] May 12, 2013 13:32:00 [id number] Melchor Screening Mamm Technologist(s): Mercedez Ha; ; EXAMINATION: Mammogram Technique: Bilateral Full-Field Digital Screening Mammogram was performed. Views obtained: bilateral craniocaudal and bilateral mediolateral oblique. Computer Aided Detection was performed with Encapson.3 version 9.3. Mammogram Findings: This is a baseline study. There are scattered fibroglandular densities. There is no suspicious abnormality in either breast. IMPRESSION: Annual screening mammography is recommended. OVERALL FINAL ASSESSMENT: BI-RADS CATEGORY 1: Negative. Requested By: LISET CALL M.D. Dictated By: LOIDA CLEARY M.D. on May 15 2013 3:23P This document has been electronically signed by: LOIDA CLEARY M.D. on May 15 2013 3:23P Historical Provider MD [facility] MAM[facility] PROCED[facility] Saige l Result from Last 3 Months or Most Recently Relevant to Health Maintenance Insurance [address] [place] [address] [facility] CHOICE PLUS Advance Directives For more information, please contact: [phone] * Full Code (Latest Code Status on File) Date Activated Date Inactivated Comments 01/27/2022 7:58 AM 01/28/2022 5:07 PM Care Teams Bleaching Supervisor Relationship Specialty Start Date End Date Jani Shah MD PCP - General Family Medicine 01/27/22 Grey Le MD Consulting Physician Cardiology 01/28/22
--- OUTSIDE RECORDS SUMMARY | 2024-07-23 15:41 | XMS_ITS | Clinical Summary ---
Author Organization [facility] [address] [facility] Address [address] [place] [address] Care Team Providers Care Retail General Manager Name Role Phone Jani Shah MD Primary Care Provider [phone] Social History Tobacco Use Types Packs/Day Years Used Date Smoking Tobacco: Never Assessed Comments Unknown Sex and Gender Information Value Date Recorded Sex Assigned at Not on file Legal Sex Female 9:45 AM CERTIFIED CYTOTECHNOLOGIST Gender Identity Not on file Sexual Orientation Not on file Plan of Treatment Health Maintenance Due Date Last Done Comments HEPATITIS B VACCINES (1 of 3 - 19+ 3-dose series) 1991 HPV/Cotest (21-29) 1993 PAP SMEAR 1993 CERVICAL CANCER SCREENING 2002 HPV/Cotest (30-65) 2002 PAP SMEAR 2002 BREAST CANCER SCREENING 2012 COLORECTAL SCREENING 2017 Colorectal Cancer Screening 2017 FIT-DNA Q 3 years 2017 FIT/FOBT Q 1 year 2017 Flex Sig/CT Colonography Q 5 years 2017 ZOSTER VACCINE (1 of 2) 2022 INFLUENZA VACCINE (#1) 2023 0, 01/17/2019 DTAP/TDAP/TD VACCINES (2 - T d or Tdap) 06/01/2028 06/01/2018 PNEUMOCOCCAL VACCINE 0-49 YEARS Aged Out No longer eligible b ased on patient's age to complete this topic Insurance [facility] [id number] Care Teams Retail General Manager Relationship Specialty Start Date End Date Jani Shah MD [address] [place] [address] PCP - General Family Practice 02/24/20
--- OUTSIDE RECORDS SUMMARY | 2024-07-23 15:41 | XMS_ITS | Clinical Summary ---
Author Organization [facility] Address [address] [place] [address] Care Team Providers Care Jelly Maker Name Role Phone Jani Shah MD Primary Care Provider [phone] Source Comments [facility],non-owned Affiliates and Associated Physician Practices is amultiple site organization consisting of ambulatory clinics and hospital sitesin [place], [place], [place] and [place]. This disclosure is being madepursuant to the Care Everywhere program and may not contain all information available regarding this patient. Last updated 17.[facility] Allergies Active Allergy Reactions Criticality Noted Date Comments Adhesive Sensitivity Rash Medium 01/27/2022 Reaction: RASH Hydrocodone Nausea and/or Vomiting 04/28/2020 Oxycodone-Acetaminophen Headache Low 04/28/2020 Medications * Be aware that medications may not be up to date on this document. Alwaysverify current medications with the patient. furosemide (LASIX) 20 MG tablet Take 2 (two) tablets by mouth once daily 01/16/20 17 Active losartan - hydroCHLOROthiazide (HYZAAR) 50-12.5 MG tablet Take 0.5 (one-half) tablet by mouth once daily 01/11/20 17 Active fluticasone propionate (FLONASE) 50 MCG/ACT nasal spray [place] 2 (two) sprays into each nostril once daily 12/29/19 17 Active omeprazole (PRILOSEC) 40 MG capsule Take 1 (one) capsule by mouth once daily 12/13/19 17 Active loratadine (CLARITIN) 10 MG tablet Take 1 (one) tablet by mouth once daily 5 01/17/20 17 Active metoprolol succinate XL 24hr (TOPROL XL) 50 MG tablet Take 1 (one) tablet by mouth once daily 03/30/20 18 Active POTASSIUM CHLORIDE PO Take 10 mEq by mouth once daily 01/22/20 18 Active methylphenidate CR (CONCERTA) 27 MG tablet Take 1 (one) tablet by mouth every morning 12/02/19 20 Active meloxicam (MOBIC) 15 MG tablet Take 1 (one) tablet by mouth once daily 05/06/19 21 Active multivitamins (One A Day) capsule Take 1 (one) capsule by mouth once daily Active methylphenidate ER (Concerta) 36 MG tablet TAKE 1 TABLET BY MOUTH EVERY DAY IN THE MORNING 02/04/20 22 Active Saxenda 18 MG/3ML 01/20/20 22 Active Cholecalciferol 25 MCG (1000 UT) Take 5 (five) tablets by mouth once daily Active B Complex Vitamins CAPS Take 1 capsule by mouth once daily Active losartan (Cozaar) 25 MG tablet 02/08/20 23 Active Immunizations Immunization Administration Dates Next Due FLU, HISTORIC VACCINE 03/09/2016 INFLUENZA VACCINE 12/28/2016,01/18/2015 INFLUENZA VACCINE, CELL CULT URE, QUADR. (FLUCELVAX QUADRIVALENT; 6MO+) (CCIIV4) 01/17/2019 INFLUENZA VACCINE, QUADR. (F LUZONE; FLULAVAL; FLUARIX; AFLURIA QUADRIVALENT; 6MO+), 0.5 ML (IIV4) 01/19/2020,01/13/2018 TDAP (7yrs+) 08/23/2020,06/01/2018 iNFLUENZA VACCINE, RECOM-BONILLA, QUADR. (FLUBLOCK QUADRIVALENT; 18Y+) (RIV4) 03/04/2021 Social History Tobacco Use Types Packs/Day Years Used Date Smoking Tobacco: Never Passive Smoke Exposure: Yes Smokeless Tobacco: Never Tobacco Cessation:Counseling Given: Not Answered Alcohol Use Standard Drinks/Week Comments Yes 0 (1 standard drink = 0.6 oz pur e alcohol) PHQ-2 Answer Date Recorded Patient Health Questionnaire-2 Score 0 02/19/2024 Comments No Sex and Gender Information Value Date Recorded Sex Assigned at Not on file Legal Sex Female 5:46 AM FOUNTAIN OPERATOR Gender Identity Not on file Sexual Orientation Not on file Last Filed Vital Signs Vital Sign Reading Time Taken Comments Blood Pressure 119/76 02/19/2024 9:11 AM FOUNTAIN OPERATOR Pulse - - Temperature - - Respiratory Rate - - Oxygen Saturation - - Inhaled Oxygen Concentration - - Weight 97.5 kg (215 lb) 02/19/2024 9:11 AM FOUNTAIN OPERATOR Height 162.6 cm (5' 4 ) 02/19/2024 9:11 AM FOUNTAIN OPERATOR Body Mass Index 36.9 02/19/2024 9:11 AM FOUNTAIN OPERATOR Plan of Treatment Upcoming Encounters Date Type Department Care Team (Late st Contact Info) Description 02/20/2025 9:20 AM FOUNTAIN OPERATOR Office Visit [facility] - SPICE FUMIGATOR [address] [place] [address], [address] [place] [phone] Sandip Schneider MD [address] [place] [address] [place] [phone] Health Maintenance Due Date Last Done Comments COLOGUARD (AGES 45-75) - COLON CA SCREENING 1972 COLON MONITORING 1972 COLONOSCOPY - COLON CA SCREENING 1972 CT COLONOGRAPHY - COLON CA SCREENING 1972 Colorectal Cancer Screening 1972 FIT - COLON CA SCREENING 1972 FLEX SIG - COLON CA SCREENING 1972 LIPID TESTING 1972 HIV SCREENING 1987 HEPATITIS C SCREENING 04/19/1990 HEPATITIS B VACCINE (1 of 3 - 19+ 3-dose series) 1991 PNEUMOCOCCAL VACCINE 50+ (1 of 1 - PCV) 2022 ZOSTER VACCINE (1 of 2) 2022 COVID-19 VACCINE ( season) 2023 03/20/2021, 08/19/2020, 07/20/2020 SCREENING FOR DIABETES 02/19/2024 MAMMOGRAM 03/08/2024 03/08/2023, 12/09 (Done Outside Per Report), 05/14/2019, Additional history exists DEPRESSION SCREENING 04/09/2024 02/19/2024, 05/05/2022, 05/23/2021 INFLUENZA VACCINE (Season Ended) 2024 03/04/2021, 01/19/2020, 01/17/2019, Additional history exists PAP with HPV 02/18/2029 02/19/2024, 02/07, 01/30/2022, Additional history exists DTAP/TDAP/TD VACCINES (3 - Td or Tdap) 08/23/2030 08/23/2020, 06/01/2018 HIB VACCINE Aged Out No longer eligi ble based on patient's age to complete this topic HPV VACCINE Aged Out No longer eligi ble based on patient's age to complete this topic MENINGOCOCCAL (Group B) VACCINE SHARED DECISION-MAKING Aged Out No longer eligible based on patient's age to complete this topic MENINGOCOCCAL GROUPS A/C/Y/W VACCINE Aged Out No longer eligible based on patient's age to complete this topic Procedures Procedure Name Priority Date/Time Associated Diagnosis Comments PAP IG LB+HPV APTIMA Routine 02/19/2024 10:52 AM FOUNTAIN OPERATOR Well woman exam with routine gynecological exam MAMMOGRAM 03/08/2023 from Last 3 Months or Most Recently Relevant to Health Maintenance Results * PAP IG LB+HPV APTIMA (02/19/2024 10:52 AM FOUNTAIN OPERATOR) Diagnosis Comment [facility] ACCOUNT BILL Comment:NEGATIVE FOR INTRAEP ITHELIAL LESION OR MALIGNANCY. Specimen Adequacy Comment [facility] ACCOUNT BILL Comment: Satisfactory for evaluation. Endocervical and/or squamous metaplastic cells (endocervical component) are present. Clinician Provided ICD10 Comment [facility] ACCOUNT BILL Comment:Z01.419 Performed by Comment [facility] ACCOUNT BILL Comment:Criss Recio, Cyto technologist (ASCP) Comment . [facility] ACCOUNT BILL Note Comment [facility] ACCOUNT BILL Comment: The Pap smear is a screening test designed to aid in the detection of premalignant and malignant conditions of the uterine cervix. It is not a diagnostic procedure and should not be used as the sole means of detecting cervical cancer. Both false-positive and false-negative reports do occur. IGLBP CPT Code Automation Comment [facility] ACCOUNT BILL Comment: This liquid based ThinPrep(R) pap test was screened with the use of an image guided system. Human papillomavirus Aptima Negative Negative [facility] ACCOUNT BILL Comment: This nucleic acid amplification test detects fourteen high-risk HPV types (16,18,31,33,35,39,45,51,52,56,58,59,66,68) without differentiation. Pathology/Cytolog y PART OF UTERINE CERVIX / Unknown 02/19/2024 10:52 AM FOUNTAIN OPERATOR 02/19/2024 Comment:Cervix Release to pa t Narrative [facility] ACCOUNT BILL - 02/26/2024 11:13 AM FOUNTAIN OPERATOR Performed at: 01 - [facility] [id number] Seconds Inspector: Patricia Lynch MD, Phone: [phone] Performed at: 02 - [facility] [id number] Seconds Inspector: Patricia Lynch MD, Phone: [phone] Specimen Comment: [id number] Specimen Comment: No. of containers..01 ThinPrep Vial us Sandip Schneider MD LAB - PATHOLOGY/CYTOLOGY OR DERABLES Final Result Performing Organization Address City/State/[facility] Co de Phone Number [facility] ACCOUNT BILL [address] [place] [address] * MAMMOGRAM (03/08/2023) Anatomical Region Laterality Modality Other 03/08/2023 Narrative 03/08/2023 Ordered by an unspecified provider. us Scanned Document SCANNING ONLY Final Result from Last 3 Months or Most Recently Relevant to Health Maintenance Insurance [facility] Care Teams Jelly Maker Relationship Specialty Start Date End Date Jani Shah MD [address] [place] [address] PCP - General Family Medicine 02/27/17
--- OUTSIDE RECORDS SUMMARY | 2024-07-23 15:41 | XMS_ITS | Clinical Summary ---
Author Organization [facility] Address [address] [place] [address] Care Team Providers Care Waiter/Waitress Take Out Name Role Phone Jani Shah MD Primary Care Provider [phone] Allergies Active Allergy Reactions Criticality Noted Date Comments Dander Itching 04/28/2020 Hydrocodone Nausea and Vomiting 04/28/2020 Oxycodone-Acetaminophen Headache 04/28/2020 Medications cyclobenzaprine 7.5 MG Tab TAKE 1 TABLET BY MOUTH EVERY 12 HOURS NEEDED FOR MUSCLE SPASMS 01/28/2020 Active fluticasone propionate 50 MCG/ACT nasal spray 04/06/2020 Active furosemide 20 MG tablet 04/22/2020 Active losartan-hydroCH LOROthiazide 50-12.5 MG tablet 01/26/2020 Active metoprolol succinate ER 50 MG 24 hr tablet 04/18/2020 Act alex omeprazole 40 MG capsule 04/22/2020 Active potassium chloride CR 10 MEQ CR capsule 02/09/2020 Acti ve meloxicam 15 MG tablet 05/06/2020 Active loratadine 10 MG tablet Take 10 mg by mouth daily. Active methylphenidate CR 27 MG tablet Take 27 mg by mouth every morning. Active Family History Medical History Relation Comments Hypertension Brother Heart Disease Father Hyperlipidemia Father Cancer Mother Hyperlipidemia Mother Hyperlipidemia Sister Relation Status Comments Brother Father Mother Sister Social History Tobacco Use Types Packs/Day Years Used Date Smoking Tobacco: Never Smokeless Tobacco: Never Comments No Sex and Gender Information Value Date Recorded Sex Assigned at Not on file Legal Sex Female 4:25 PM CDT Gender Identity Not on file Sexual Orientation Not on file Last Filed Vital Signs Vital Sign Reading Time Taken Comments Blood Pressure 134/86 05/11/2020 10:06 AM WIND SCIENCE AND PLANNING Pulse 65 05/11/2020 10:06 AM WIND SCIENCE AND PLANNING Temperature 36.9 C (98.5 F) 05/11/2020 9:34 AM WIND SCIENCE AND PLANNING Respiratory Rate 20 05/11/2020 10:0 6 AM WIND SCIENCE AND PLANNING Oxygen Saturation 100% 05/11/2020 10: 06 AM WIND SCIENCE AND PLANNING Inhaled Oxygen Concentration - - Weight 101.9 kg (224 lb 9.6 oz) 05/11/2020 9:34 AM WIND SCIENCE AND PLANNING Height 162.6 cm (5' 4 ) 05/11/2020 9:34 AM WIND SCIENCE AND PLANNING Body Mass Index 38.55 05/11/2020 9:34 AM WIND SCIENCE AND PLANNING Plan of Treatment Health Maintenance Due Date Last Done Comments Cervical Cancer Screening Pa p Smear (Age 30 to 64) Every 3 Years 1972 Colorectal Cancer Screening Colonoscopy (10 Years) 1972 Annual Physical 1975 Hepatitis C 1990 Hepatitis B Vaccines (1 of 3 - 19+ 3-dose series) 1991 Cervical Cancer Screening Pa p with HPV Testing (Age 30 to 64) Every 5 Years 2002 Cervical Cancer Screening with HPV 2002 Mammogram Screening 2012 Zoster Vaccines (1 of 2) 2022 COVID-19 Vaccine (2023-2 5 season) 2023 DTaP, Tdap and Td Vaccines ( 2 - Td or Tdap) 06/01/2028 06/01/2018 Meningococcal B Vaccine Aged Out No l onger eligible based on patient's age to complete this topic Meningococcal Vaccine Aged Out No spencer andrea eligible based on patient's age to complete this topic Pneumococcal Vaccine: Pediat rics (0 to 5 Years) and At-Risk Patients (6 to 49 Years) Aged Out No longer eligi ble based on patient's age to complete this topic RSV Immunizations Under 20 Months Aged Out No longer eligible based on patient's age to complete this topic Insurance Care Teams Waiter/Waitress Take Out Relationship Specialty Start Date End Date Jani Shah MD [address] [place] [address] PCP - General FAMILY PRACTICE 02/05/20
--- OUTSIDE RECORDS SUMMARY | 2024-07-23 15:41 | XMS_ITS | Referral Summary ---
Author Organization [facility] Address [address] [place] [address] Care Team Providers Care Supervisor Cold Rolling Name Role Phone Jani Shah MD Primary Care Provider [phone] Grey Le MD Unavailable [phone] Allergies Active Allergy Reactions Criticality Noted Date [...] Vitamin D deficiency GERD (gastroesophageal reflux disease) Social History Tobacco Use Types Packs/Day Years [...] on file Legal Sex Female 12:36 PM NEEDLE STRAIGHTENER Gender Identity Not on file Sexual Orientation [...] 01/27/2022 3:46 AM CDT Plan of Treatment Not on file Procedures Procedure Name Priority Date/Time Associated Diagnosis Comments SCREENING MAMMOGRAM Routine 05/12/2013 1 :32 PM NEEDLE STRAIGHTENER from Last 3 Months or Most Recently Relevant to Health Maintenance Results * Screening Mammogram (05/12/2013 1:32 PM NEEDLE STRAIGHTENER) Anatomical Region Laterality Modality Breast N/A Mammography 05/12/2013 1:32 PM NEEDLE STRAIGHTENER Narrative 05/15/2013 3:23 PM NEEDLE STRAIGHTENER LOIDA CLEARY M.D. FINAL REPORT ACC# Date Time Exam [id number] May 12, 2013 13:32:00 BMV [id number] [place] Screening Mamm Technologist(s): Mercedez Ha; ; EXAMINATION: Mammogram Technique: Bilateral Full-Field Digital Screening Mammogram was performed. Views obtained: bilateral craniocaudal and bilateral mediolateral oblique. Computer Aided Detection was performed with Mozaico 1.3 version 9.3. Mammogram Findings: This is a [...] M.D. FINAL REPORT ACC# Date Time Exam [id number] May 12, 2013 13:32:00 BMV [id number] [place] Screening Mamm Technologist(s): Mecredez Ha; ; EXAMINATION: Mammogram Technique: Bilateral Full-Field Digital Screening Mammogram was performed. Views obtained: bilateral craniocaudal and bilateral mediolateral oblique. Computer Aided Detection was performed with Mozaico 1.3 version 9.3. Mammogram Findings: This is a baseline study. There are scattered fibroglandular densities. There is no suspicious abnormality in either breast. IMPRESSION: Annual screening mammography is recommended. OVERALL FINAL ASSESSMENT: BI-RADS CATEGORY 1: Negative. Requested By: LISET CALL M.D. Dictated By: LOIAD CLEARY M.D. on May 15 2013 3:23P This document has been electronically signed by: LOIDA CLEARY M.D. on May 15 2013 3:23P us Historical Provider MD FRITZ MAMMO PROCEDURES Saige l Result from Last 3 Months or Most Recently Relevant to Health Maintenance Insurance [address] [facility]ICE [facility] Address: [place] [address] [address] [employer]/PPO Address: [place] [address] Advance Directives For more information, please contact: [phone] * Full Code (Latest Code Status on File) Date Activated Date Inactivated Comments 01/27/2022 7:58 AM 01/28/2022 5:07 PM Care Teams Supervisor Cold Rolling Relationship Specialty Start Date End Date Jani Shah MD PCP - General Family Medicine 01/27/22 Grey Le MD Consulting Physician Cardiology 01/28/22
== END 2024-07-23 14:20 | disposition home or self-care (01) ==
PROVIDERS: PCP Family Medicine; Visit Provider Nurse Practitioner Family
DX: M79.642 Pain in left hand (principal); M79.641 Pain in right hand
CPT/HCPCS: 73130

== ENCOUNTER 2025-03-19 01:27 | Day surgery (SDC) | payer OTHER, SELFPAY ==
[2025-03-04 12:03] VITALS: BMI 36.3
--- OUTSIDE RECORDS SUMMARY | 2025-03-19 01:29 | XMS_ITS | Clinical Summary ---
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 Gender Identity Not on file Sexual Orientation [...] 3:46 AM CDT Height 162.6 cm (5' 4) 01/27/2022 3:46 AM CDT Body Mass Index 35.87 01/27/2022 3:46 AM CDT Plan of Treatment Not on file Insurance [facility]US [facility] CHO[facility] PL[facility] Advance Directives For more information, please contact: [phone] * Full Code (Latest Code Status on File) Date Activated Date Inactivated Comments 01/27/2022 7:58 AM 01/28/2022 5:07 PM Care Teams Oceanographer Assistant Relationship Specialty Start Date End Date Jani Shah MD PCP - General Family Medicine 01/27/22 Grey Le MD Consulting Physician Cardiology 01/28/22
--- OUTSIDE RECORDS SUMMARY | 2025-03-19 01:29 | XMS_ITS | Clinical Summary ---
Author Organization [email or web address] Address [address] [place] [address] Care Team Providers Care Hospice Rn Name Role Phone Jani Shah MD Primary Care Provider [phone] Source Comments [facility],non-owned Affiliates and Associated Physician Practices is amultiple site organization consisting of ambulatory clinics and hospital sitesin [place], [place], [place] and [place]. This disclosure is being madepursuant to the Care Everywhere program and may not contain all information available regarding this patient. Last updated [email or web address].[email or web address] Allergies Active Allergy Reactions Criticality Noted Date [...] fluticasone propionate (FLONASE) 50 MCG/ACT nasal spray Siloam 2 (two) sprays into each nostril once [...] (Cozaar) 25 MG tablet 02/08/20 23 Active Encounters Date Type Department Care Team Description 02/20/2025 9:20 AM HEALTHCARE ECONOMICS MANAGER Office Visit [facility] [place] [facility] [place] [address] [place] [address], [address] [place] [phone] Sandip Schneider MD Well woman exam with routine gynecological exam (Primary Dx) 02/20/2025 Travel from Last 3 Months Immunizations Immunization Administration Dates Next Due FLU, [...] Date Recorded Patient Health Questionnaire-2 Score 0 02/20/2025 Comments No Sex and Gender Information Value Date Recorded Sex Assigned at Not on file Legal Sex Female 5:46 AM HEALTHCARE ECONOMICS MANAGER Gender Identity Not on file Sexual Orientation Not on file Last Filed Vital Signs Vital Sign Reading Time Taken Comments Blood Pressure 142/80 02/20/2025 9:33 AM HEALTHCARE ECONOMICS MANAGER Pulse - - Temperature - - Respiratory Rate - - Oxygen Saturation - - Inhaled Oxygen Concentration - - Weight 96.2 kg (212 lb) 02/20/2025 9:33 AM HEALTHCARE ECONOMICS MANAGER Height 162.6 cm (5' 4) 02/20/2025 9:33 AM HEALTHCARE ECONOMICS MANAGER Body Mass Index 36.39 02/20/2025 9:33 AM HEALTHCARE ECONOMICS MANAGER Plan of Treatment Upcoming Encounters Date Type Department Care Team (Late st Contact Info) Description 02/25/2026 9:20 AM HEALTHCARE ECONOMICS MANAGER Office Visit [facility] - [place] [facility] [place] [address] [place] [address], [address] [place] [phone] Sandip Schneider MD [address] [place] [address] [place] [phone] Health Maintenance Due Date Last Done [...] 2022 ZOSTER VACCINE (1 of 2) 2022 MAMMOGRAM 03/08/2024 03/08/2023, 12/09 (Done Outside Per Report), 05/14/2019, Additional history exists COVID-19 VACCINE ( season) 2024 02/24/2022, 03/20/2021, 08/19/2020, Additional history exists INFLUENZA VACCINE (#1) 2024 , 02/24/2022, 03/04/2021, Additional history exists SCREENING FOR DIABETES 02/20/2025 PAP SMEAR 02/21/2028 02/20/2025, 02/07, 02/16/2023, Additional history exists Cervical Cancer Screening 02/20/2030 PAP with HPV 02/20/2030 02/20/2025, 02/07, 02/16/2023, Additional history exists DTAP/TDAP/TD VACCINES (3 - Td or Tdap) 08/23/2030 08/23/2020, 06/01/2018 DEPRESSION SCREENING Completed 02/20/2025, 02/19/2024, 05/05/2022, Additional history exists HIB VACCINE Aged Out No longer eligi [...] Diagnosis Comments PAP IG LB+HPV APTIMA Routine 02/20/2025 2:04 PM HEALTHCARE ECONOMICS MANAGER Well woman exam with routine gynecological exam MAMMOGRAM 03/08/2023 from Last 3 Months or Most Recently Relevant to Health Maintenance Results * PAP IG LB+HPV APTIMA (02/20/2025 2:04 PM HEALTHCARE ECONOMICS MANAGER) Diagnosis Comment [facility] ACCOUNT BILL Comment:NEGATIVE FOR INTRAEP ITHELIAL LESION OR MALIGNANCY. Specimen Adequacy Comment [facility] ACCOUNT BILL Comment: Satisfactory for evaluation. Endocervical and/or squamous metaplastic cells (endocervical component) are present. Clinician Provided ICD10 Comment [facility] ACCOUNT BILL Comment:[id number] Performed by Comment [facility] ACCOUNT BILL Comment:Melyssa Gonzalez Cytol ogsaravanan (ASCP) Comment . [facility] ACCOUNT BILL Note [...] This liquid based ThinPrep(R) pap test was interpreted using the [employer]. B[employer](R) Genius(TM) Cervical Algorithm whole slide imaging system. Human papillomavirus Aptima Negative Negative [facility] ACCOUNT BILL Comment: This nucleic acid amplification test detects fourteen high-risk HPV types (16,18,31,33,35,39,45,51,52,56,58,59,66,68) without differentiation. Pathology/Cytolog y PART OF UTERINE CERVIX / Unknown 02/20/2025 2:04 PM HEALTHCARE ECONOMICS MANAGER 02/20/2025 Comment:Cervix Release to [facility] Narrative [facility] ACCOUNT BILL - 02/24/2025 3:10 PM HEALTHCARE ECONOMICS MANAGER Performed at: 01 - [facility] [id number] Associate Professor Of Archaeology: Patricia Lynch MD, Phone: [phone] Performed at: 02 - [facility] [id number] Associate Professor Of Archaeology: Patricia Lynch MD, Phone: [phone] Specimen Comment: [id number] Specimen Comment: No. of containers..01 ThinPrep Vial Sandip Schneider MD LAB - PATHOLOGY/CYTOLOGY OR DERABLES Final Result [facility] ACCOUNT BILL [id number] [place] [address] * MAMMOGRAM (03/08/2023) Anatomical Region Laterality Modality Other 03/08/2023 Narrative 03/08/2023 Ordered by an unspecified provider. us Scanned Document SCANNING ONLY Final Result from Last 3 Months or Most Recently Relevant to Health Maintenance Insurance [facility] Care Teams Hospice Rn Relationship Specialty Start Date End Date Jani Shah MD [address] [place] [address] PCP - General Family Medicine 02/27/17
--- OUTSIDE RECORDS SUMMARY | 2025-03-19 01:29 | XMS_ITS | Clinical Summary ---
Author Organization [facility] Address [address] [place] [address] Care Team Providers Care Sap Portal Architect Name Role Phone Jani Shah MD Primary Care Provider [phone] Allergies Active Allergy Reactions Criticality Noted Date [...] Comments Blood Pressure 134/86 05/11/2020 10:06 AM HEALTHCARE NETWORK PRICING CONSULTANT Pulse 65 05/11/2020 10:06 AM HEALTHCARE NETWORK PRICING CONSULTANT Temperature 36.9 C (98.5 F) 05/11/2020 9:34 AM HEALTHCARE NETWORK PRICING CONSULTANT Respiratory Rate 20 05/11/2020 10:0 6 AM HEALTHCARE NETWORK PRICING CONSULTANT Oxygen Saturation 100% 05/11/2020 10: 06 AM HEALTHCARE NETWORK PRICING CONSULTANT Inhaled Oxygen Concentration - - Weight 101.9 kg (224 lb 9.6 oz) 05/11/2020 9:34 AM HEALTHCARE NETWORK PRICING CONSULTANT Height 162.6 cm (5' 4) 05/11/2020 9:34 AM HEALTHCARE NETWORK PRICING CONSULTANT Body Mass Index 38.55 05/11/2020 9:34 AM HEALTHCARE NETWORK PRICING CONSULTANT Plan of Treatment Health Maintenance Due Date [...] Every 5 Years 2002 Cervical Cancer Screening wi HPV 2002 Mammogram Screening 2012 Pneumococcal Vaccine: 50+ Years (1 of 1 - PCV) 2022 Zoster Vaccines (1 of 2) 2022 COVID-19 Vaccine (1 - 2024-2 6 season) 2024 Influenza Adult (#1) 2025 01/19/2020, 01/17/2019 DTaP, Tdap and Td Vaccines ( 2 - Td or Tdap) 06/01/2028 06/01/2018 Hepatitis A Vaccines Aged Out No long er eligible based on patient's age to complete this topic Meningococcal B Vaccine Aged Out No l onger eligible based on patient's age to complete this topic Meningococcal Vaccine Aged Out No spencer andrea eligible based on patient's age to complete this topic RSV Immunizations Under 20 Months Aged Out No longer eligible b ased on patient's age to complete this topic Insurance Care Teams Sap Portal Architect Relationship Specialty Start Date End Date Jani Shah MD [address] [place] [id number] PCP - General FAMILY PRACTICE 02/05/20
--- OUTSIDE RECORDS SUMMARY | 2025-03-19 01:29 | XMS_ITS | Clinical Summary ---
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 Gender Identity Not on file Sexual Orientation Not on file Plan of Treatment Health Maintenance Due Date Last Done Comments HEPATITIS B VACCINES (1 of 3 - 19+ 3-dose series) 1991 HPV/Cotest (21-29) 1993 CERVICAL CANCER SCREENING 2002 HPV/Cotest (30-65) 2002 PAP SMEAR 2002 BREAST CANCER SCREENING 2012 COLORECTAL SCREENING 2017 Colorectal Cancer Screening 2017 FIT-DNA Q 3 years 2017 FIT/FOBT Q 1 year 2017 Flex Sig/CT Colonography Q 5 years 2017 ZOSTER VACCINE (1 of 2) 2022 INFLUENZA VACCINE (#1) 2024 01/19/2020, 2018 DTAP/TDAP/TD VACCINES (2 - Td or Tdap) 06/01/2028 Insurance [facility] OPTIONS PPO [id number] Member Subscriber Plan / Payer (Ef fective 2020-Present) Name:Josette Elizondo Relation to Subscriber:Self Name:Josette Elizondo Payer ID:[id number] (NAIC) Type:PPO Address: [facility] [id number] [place] [id number] Care Teams Account Support Associate Relationship Specialty Start Date End Date Jani Shah MD [address] [place] [address] PCP - General Family Practice 02/24/20
[2025-03-19 12:42] VITALS: BP 121/75; PULSE 66; RESP 18; TEMP 36.3; O2SAT 100
[2025-03-19] MEDS: LACTATED RINGERS 1,000 ML 150 ML IV CONT (12:52)
[2025-03-19 13:01] LABS: BEDSIDEPREGUCG Negative (Negative)
--- NOTE | 2025-03-19 13:07 | P.HP_ITS ---
History of Present Illness History of Present Illness Consent: Risks, benefits, and alternatives have been discussed and questions answered. Patient agrees to proceed with procedure. Chief complaint: GERD Narrative: Josette Elizondo is a 54 year old female with gerd on omeprazole Review of Systems Review of Systems: All systems reviewed & are unremarkable except as noted in HPI and below PMFSH Past Medical History Medical History Encounter for surgical aftercare following surgery on the skin and subcutaneous tissue Dizziness Neck pain Person under investigation for COVID-19 Sinusitis BMI 40.0-44.9, adult Constipation Lipoma of back Mass on back Subacromial bursitis Left shoulder pain Cyst of ovary Uterine polyp Reduced libido Digital mucous cyst of toe of right foot DJD of AC (acromioclavicular) joint Rotator cuff tendinitis Right shoulder pain Left knee DJD Right knee DJD Pneumonia Lateral epicondylitis, left elbow ADD (attention deficit disorder) Carpal tunnel syndrome Anemia Sleep apnea GERD (gastroesophageal reflux disease) Vision abnormalities Numbness and tingling in right hand Lateral epicondylitis Obesity Lateral epicondylitis of both elbows Edema Diastolic dysfunction Essential hypertension Fibromyalgia Hyperlipidemia AGUS on CPAP Primary osteoarthritis of both knees Sinus tachycardia Screen for colon cancer Screening, lipid Bilateral knee pain Arthritis HTN (hypertension) Palpitations Kidney disease Chronic GERD Nausea Surgical History Surgical History History of foot surgery History of carpal tunnel surgery History of wisdom tooth extraction H/O section x3 Hx of cholecystectomy Family History Family History Mother Family history of elevated blood lipids Family history of arthritis Family history of dementia Sibling Colon polyp Hypertension Father Heart disease Hyperlipidemia Malignant neoplasm of prostate Other Cerebrovascular accident Family history of lung disease Family history of malignant neoplasm of uterus Social History Social History Smoking status: Never smoker Second hand tobacco smoke exposure: Yes Alcohol intake: current Substance use: never Substance use type: does not use Other substance usage details: cbd oil Lack of Transportation: No Lack of Food: Never True Current Housing: I Have Housing Concerned About Future Housing: No Difficulty Paying Gas/Electric Bills: No Difficulty Paying for Meds: No Currently Unemployed: No Education: Trade/Vocational Certificate Difficulty w/ Childcare or Family Care: No Living arrangements: with family Occupation/Education: unemployed 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 Gender identity (if verbalized by the patient): Female Spiritual care concerns: No Meds Home Medications and Allergies Home Medications ?Medication ?Instructions ?Recorded ?Confirmed ?Type cetirizine 10 mg capsule (Zyrtec) 10 mg PO DAILY 03/1303/04/25 History tramadol 50 mg tablet 50 mg PO Q8H PRN pain #30 ta bs 12/17/20 03/04/25 Rx ferrous sulfate 325 mg (65 mg 325 mg PO DAILY 06/10/21 03/04/25 History iron) tablet (Feosol) vitamin B complex (B 1 tablet PO DAILY 01/05/22 1 05/04/24 History Complex-Vitamin B12 tablet) ascorbate calcium (vitamin C) 500 500 mg PO DAILY 05/1003/04/25 History mg tablet calcium 600 mg (as 1 cap PO .QD 05/22/22 History carbonate)-vitamin D3 5 mcg (200 unit) capsule (Calcium 600 + D(3)) albuterol sulfate 90 mcg/actuation 1 inh inhalation Q4 H PRN shortness 11/02/22 03/04/25 Rx aerosol inhaler (ProAir HFA) of breath or wheezing #6. 7 grams semaglutide (weight loss) 1 mg/0.5 1 mg (0.5 mL) subcu t Q7D #2 mL 03/31/24 03/19/25 Rx mL subcutaneous pen injector (Harriett) potassium chloride 10 mEq See Rx Instructions .Route 0 04/21/24 03/04/25 Rx capsule,extended release .COMPLEX #90 caps meloxicam 15 mg tablet See Rx Instructions .Route 0 05/05/24 03/19/25 Rx .COMPLEX #90 tabs losartan 25 mg tablet See Rx Instructions .Route 0 07/28/24 03/04/25 Rx .COMPLEX #90 tabs furosemide 20 mg tablet See Rx Instructions .Route 0 10/04/24 03/04/25 Rx .COMPLEX #90 tabs methylphenidate HCl 36 mg 36 mg PO QAM #30 tabs 03/04/25 Rx tablet,extended release 24 hr (Concerta) cholecalciferol (vitamin D3) 100 100 mcg PO DAILY 08/3103/04/25 History mcg (4,000 unit) tablet methylphenidate HCl 27 mg 27 mg PO QAM #30 tabs 03/04/25 Rx tablet,extended release 24 hr (Concerta) lansoprazole 30 mg capsule,delayed 30 mg PO DAILY #30 caps 02/27/25 03/04/25 Rx release metoprolol succinate 50 mg See Rx Instructions .Route 03/03/25 03/19/25 Rx tablet,extended release 24 hr .COMPLEX #90 tabs diindolylmethane 50 mg-herbal 1 cap PO DAILY 03/04/25 03/04/25 History drugs 50 mg capsule cyclobenzaprine 10 mg tablet 10 mg PO TID PRN muscle s pasm #60 03/07/25 Rx tabs Allergies Allergy/AdvReac Type Severity Reaction Status Date / Time adhesive Allergy Unknown RASH Verified 03/19/25 12:40 oxycodone Allergy Unknown Headache Verified 03/19/25 12:40 hydrocodone AdvReac Unknown Nausea Verified 03/19/25 12:40 Vital Signs Vital Signs - 24 hr 03/19/25 12:42 Temperature 97.3 F L Pulse Rate 66 Respiratory Rate 18 Blood Pressure 121/75 Pulse Oximetry 100 Oxygen Delivery Room Air Exam Const: General: comfortable and no acute distress HENMT: Face/Nose/Sinus: Normal nares present Eyes: General: appearance normal, both eyes and all related structures Neck: Neck: no JVD Resp: Auscultation: clear to auscultation bilaterally Cardio: Rate: regular rate Rhythm: regular rhythm GI: Inspection: non-distended GI Palp: Yes Soft to palpation Skin: General skin exam: normal color Extrem: General: normal to inspection Psych: Mental Status: mental status grossly normal Assessment and Plan Assessment and plan (1) GERD (gastroesophageal reflux disease): Code(s): K21.9 - Gastro-esophageal reflux disease without esophagitis Status: Acute Assessment and Plan: egd with bx
--- NOTE | 2025-03-19 13:07 | WPDANESEPPF ---
Anes - Initial Pre Proc Eval Procedure: Operation Date: 03/19/25 13:45 Proposed Procedures p Esophagogastroduodenoscopy EGD - Chava Coleman MD Date/Time: 03/19/25 13:07 Surgeon: Chava Coleman MD Pre Op Diagnosis: GERD Patient Data Age: 54 Gender: F Height: 1.63 m Weight: 95.4 kg Last Vital Signs Temp 36.3 C L 03/19/25 12:42 Pulse 66 03/19/25 12:42 Resp 18 03/19/25 12:42 BP 121/75 03/19/25 12:42 Pulse Ox 100 03/19/25 12:42 O2 Del Method Room Air 03/19/25 12:42 Allergies Allergy/AdvReac Type Severity Reaction Status Date / Time adhesive Allergy Unknown RASH Verified 03/19/25 12:40 oxycodone Allergy Unknown Headache Verified 03/19/25 12:40 hydrocodone AdvReac Unknown Nausea Verified 03/19/25 12:40 Home Medications ?Medication ?Instructions ?Recorded ?Confirmed ?Type cetirizine 10 mg capsule (Zyrtec) 10 mg PO DAILY 03/13/19 03/04/25 History tramadol 50 mg tablet 50 mg PO Q8H PRN pain #30 tabs 12/17/20 03/04/25 Rx ferrous sulfate 325 mg (65 mg 325 mg PO DAILY 06/10/21 03/04/25 History iron) tablet (Feosol) vitamin B complex (B 1 tablet PO DAILY 01/05/22 03/04/25 History Complex-Vitamin B12 tablet) ascorbate calcium (vitamin C) 500 500 mg PO DAILY 05/22/22 03/04/25 History mg tablet calcium 600 mg (as 1 cap PO .QD 05/22/22 03/04/25 History carbonate)-vitamin D3 5 mcg (200 unit) capsule (Calcium 600 + D(3)) albuterol sulfate 90 mcg/actuation 1 inh inhalation Q4H PRN shortness 11/02/22 03/04/25 Rx aerosol inhaler (ProAir HFA) of breath or wheezing #6.7 grams semaglutide (weight loss) 1 mg/0.5 1 mg (0.5 mL) subcut Q7D #2 mL 03/31/24 03/19/25 Rx mL subcutaneous pen injector (Harriett) potassium chloride 10 mEq See Rx Instructions .Route 04/21/24 03/04/25 Rx capsule,extended release .COMPLEX #90 caps meloxicam 15 mg tablet See Rx Instructions .Route 05/05/24 03/19/25 Rx .COMPLEX #90 tabs losartan 25 mg tablet See Rx Instructions .Route 07/28/24 03/04/25 Rx .COMPLEX #90 tabs furosemide 20 mg tablet See Rx Instructions .Route 10/04/24 03/04/25 Rx .COMPLEX #90 tabs methylphenidate HCl 36 mg 36 mg PO QAM #30 tabs 02/10/25 03/04/25 Rx tablet,extended release 24 hr (Concerta) cholecalciferol (vitamin D3) 100 100 mcg PO DAILY 02/11/25 03/04/25 History mcg (4,000 unit) tablet methylphenidate HCl 27 mg 27 mg PO QAM #30 tabs 02/24/25 03/04/25 Rx tablet,extended release 24 hr (Concerta) lansoprazole 30 mg capsule,delayed 30 mg PO DAILY #30 caps 02/27/25 03/04/25 Rx release metoprolol succinate 50 mg See Rx Instructions .Route 03/03/25 03/19/25 Rx tablet,extended release 24 hr .COMPLEX #90 tabs diindolylmethane 50 mg-herbal 1 cap PO DAILY 03/04/25 03/04/25 History drugs 50 mg capsule cyclobenzaprine 10 mg tablet 10 mg PO TID PRN muscle spasm #60 03/07/25 Rx tabs Laboratory Tests 03/19/25 12:56 POC Urine HCG, Qual Negative (Negative) Patient hx anesthesia problems: none Family hx anesthesia problems: none Results Review: All pre-operative results and documents have been reviewed as part of the pre-operative evaluation. [facility] Past Medical History Medical History Encounter for surgical aftercare following surgery on the skin and subcutaneous tissue Dizziness Neck pain Person under investigation for COVID-19 Sinusitis BMI 40.0-44.9, adult Constipation Lipoma of back Mass on back Subacromial bursitis Left shoulder pain Cyst of ovary Uterine polyp Reduced libido Digital mucous cyst of toe of right foot DJD of AC (acromioclavicular) joint Rotator cuff tendinitis Right shoulder pain Left knee DJD Right knee DJD Pneumonia Lateral epicondylitis, left elbow ADD (attention deficit disorder) Carpal tunnel syndrome Anemia Sleep apnea GERD (gastroesophageal reflux disease) Vision abnormalities Numbness and tingling in right hand Lateral epicondylitis Obesity Lateral epicondylitis of both elbows Edema Diastolic dysfunction Essential hypertension Fibromyalgia Hyperlipidemia AGUS on CPAP Primary osteoarthritis of both knees Sinus tachycardia Screen for colon cancer Screening, lipid Bilateral knee pain Arthritis HTN (hypertension) Palpitations Kidney disease Chronic GERD Nausea Surgical History Surgical History History of foot surgery History of carpal tunnel surgery History of wisdom tooth extraction H/O section x3 Hx of cholecystectomy Family History Family History Mother Family history of elevated blood lipids Family history of arthritis Family history of dementia Sibling Colon polyp Hypertension Father Heart disease Hyperlipidemia Malignant neoplasm of prostate Other Cerebrovascular accident Family history of lung disease Family history of malignant neoplasm of uterus Social History Social History Smoking status: Never smoker Second hand tobacco smoke exposure: Yes Alcohol intake: current Substance use: never Substance use type: does not use Other substance usage details: cbd oil Lack of Transportation: No Lack of Food: Never True Current Housing: I Have Housing Concerned About Future Housing: No Difficulty Paying Gas/Electric Bills: No Difficulty Paying for Meds: No Currently Unemployed: No Education: Trade/Vocational Certificate Difficulty w/ Childcare or Family Care: No Living arrangements: with family Occupation/Education: unemployed 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 Informed Consent: The patient's anesthetic plan and its attendant risks and benefits were discussed with the patient/family/POA. Questions were solicited and answers provided to the satisfaction of the patient/family/POA.
--- NOTE | 2025-03-19 13:12 | S_PTH ---
PATIENT: Josette Elizondo LOC: [facility]#:[id number] AGE/SX: 54/F ROOM: RE03/19/[address]: Chava Coleman MD : 1970 BED: DIS: 03/19/2025 SPEC #: [id number] RECD: 03/19/25 13:36 STATUS: THI REMaile #: [id number] SELENE: 03/19/25 13:[address]: Chava Coleman DEPT: [facility] Surgical RECD BY: Leslie Donovan ENTERED: 03/19/25 13:36 SP TYPE: Surgical OTHR DR: Jani Shah MD Tissues: A - Esophageal Biopsy B - Gastric Biopsy Procedures: Hematoxylin and Eosin Stain Gross and Microscopic Level 4
[2025-03-19 13:14] VITALS: BP 109/64; PULSE 68; RESP 18; O2SAT 99
[2025-03-19 13:24] VITALS: BP 112/66; PULSE 66; RESP 18; O2SAT 100
[2025-03-19 13:34] VITALS: BP 108/70; PULSE 62; RESP 18; O2SAT 100
== END 2025-03-19 13:39 | disposition home or self-care (01) ==
PROVIDERS: Anesthesiology; PCP Family Medicine; Referring Provider Nurse Practitioner Family; Visit Provider Internal Medicine Gastroenterology
PROC: 0DJ08ZZ Inspection of Upper Intestinal Tract, Via Natural or Artificial Opening Endoscopic (ICD-10-PCS; CPT 43239; principal; 2025-03-19 13:45)
DX: K21.9 Gastro-esophageal reflux disease without esophagitis (principal); K44.9 Diaphragmatic hernia without obstruction or gangrene; I10 Essential (primary) hypertension; E78.5 Hyperlipidemia, unspecified; G47.33 Obstructive sleep apnea (adult) (pediatric); Z99.89 Dependence on other enabling machines and devices; Z79.85 Long-term (current) use of injectable non-insulin antidiabetic drugs
CPT/HCPCS: 43239; 88305; J2704; J7120